=== PATIENT | female | born 1985 | race Caucasian/White ===

== ENCOUNTER 2022-07-17 15:35 | Observation (INO) | payer OTHER ==
[2022-07-17 16:11] LABS: #Basophils 0.1 10x3/uL (0.0-0.2); #Eosinphils 0.1 10x3/uL (0.0-0.5); #Monocytes 0.5 10x3/uL (0.0-1.1); %Basophils 0.7 % (0.0-2.0); %Eosinophils 1.8 % (0.0-6.0); %Lymphocytes 35.9 % (18.0-47.0); %Monocytes 6.6 % (0.0-10.0); %Neutrophils 54.7 % (40.0-75.0); Hemoglobin 13.9 g/dL (12.0-15.5); Mean Corpuscular HGB CONC 33.6 g/dL (32.0-36.0); Mean Corpuscular Hemoglobin 30.2 pg (27.0-33.0); Mean Corpuscular Volume 89.8 fl (81.6-98.3); Mean Platelet Volume 10.6 fl (7.4-10.4); Platelet Count 268 10x3/uL (150-450); RBC Distribution Width 13.1 % (11.5-14.5); Red Blood Cell (RBC) Count 4.61 10x6/uL (3.90-5.03); White Blood Cell (WBC) Count 7.3 10x3/uL (3.5-10.5)
[2022-07-17 16:27] LABS: ALT (SGPT) 52 U/L (8-55); AST (SGOT) 29 U/L (5-34); Albumin 4.3 g/dL (3.5-5.0); Alkaline Phosphatase 49 U/L (40-110); Anion Gap 12 mmol/L (10-20); BUN (Urea Nitrogen) 12 mg/dL (7.0-18.7); Bilirubin, Total 0.9 mg/dL (0.2-1.2); Calc. Creatinine Clearance 0 mL/min (70-130); Calcium 9.4 mg/dL (7.8-10.44); Carbon Dioxide 26 mmol/L (22-29); Chloride 105 mmol/L (98-107); Estimated GFR 109; Globulin 2.9 g/dL (2.4-3.5); Glucose 80 mg/dL (70-105); Protein, Total 7.2 g/dL (6.0-8.3); Sodium 139 mmol/L (136-145)
[2022-07-17] MEDS ORDERED: Aspirin Chewable 81 MG TAB ONE (19:12)
[2022-07-17] MEDS ORDERED: Nitroglycerin 2% Ointment 1 INCH/1 GM Packet ONE (19:12)
[2022-07-17 21:39] LABS: SARS-CoV-2 NAA Rapid Test Not Detected (NotDetected)
[2022-07-17 23:19] LABS: Troponin I Less than 0.010 ng/mL (< 0.028)
[2022-07-18 02:02] LABS: Troponin I Less than 0.010 ng/mL (< 0.028)
[2022-07-18] MEDS ORDERED: Nitroglycerin 2% Ointment 1 INCH/1 GM Packet TOP SCH ×2 (03:00→14:00)
[2022-07-18 03:45] LABS: BHCG - Serum Negative (NEGATIVE); Pregs Control Background? CLEAR/WHITE (CLR/WHITE); Pregs Control Bar Appear? YES (CONTROL BAR)
[2022-07-18 03:52] LABS: Cardiac Risk 3.9 (Less than 4.5); Cholesterol 190 mg/dl (< 200 Desired); HDL Cholesterol 49 mg/dL (>60 Neg Risk); LDL Cholesterol, Calculated 125 mg/dL; Magnesium 1.8 mg/dL (1.6-2.6); Triglycerides 80 mg/dL (Less than 150)
[2022-07-18] MEDS ORDERED: Enoxaparin Sodium 40 MG/0.4 ML SYRINGE SC SCH (09:00)
[2022-07-18] MEDS ORDERED: Aspirin Chewable 81 MG TAB PO SCH (09:00)
[2022-07-18 09:15] VITALS: BP 117/95; TEMP 98.4
[2022-07-18] MEDS ORDERED: Enoxaparin Sodium 40 MG/0.4 ML SYRINGE ONE (09:17)
[2022-07-18] MEDS ORDERED: Aspirin Chewable 81 MG TAB ONE (09:17)
[2022-07-18 09:22] VITALS: BMI 35.4
== END 2022-07-18 18:24 | disposition home or self-care (01) ==
LOC: CSHERS 15:35 → CSHERHOLD 20:47 → INTOOBSV 20:47
PROVIDERS: ADMIT Family Medicine; ATTEND Physician Assistant
DX: R07.2 Precordial pain (principal); R00.2 Palpitations; Z20.822 Contact with and (suspected) exposure to COVID-19; E78.5 Hyperlipidemia, unspecified; Z79.899 Other long term (current) drug therapy; Z88.8 Allergy status to other drugs, medicaments and biological substances
CPT/HCPCS: 36415; 71045; 80053; 80061; 83735; 84484; 84703; 85025; 93005; 93010; 93306; 96372; G0378; J1650; U0002